=== PATIENT | female | born 1955 | race Caucasian/White ===

== ENCOUNTER 2018-09-28 06:16 | Observation (INO) ==
[2018-09-28] MEDS ORDERED: Isovue-370 500 ML BOTTLE IVP ONE (06:32)
[2018-09-28] MEDS ORDERED: 0.9 % Sodium Chloride 1,000 ML IVC ONE (06:33)
[2018-09-28 07:00] LABS: Basophils % 0.5 %; Eosinophils # 0.2 K/mcL (0.0-0.6); Eosinophils % 2.3 %; Hematocrit 34.6 % (35.3-44.9); Hemoglobin 11.8 g/dL (11.5-15.4); Immature Granulocytes % 0.5 % (0-4); Lymphocytes # 3.2 K/mcL (0.6-4.6); Lymphocytes % 37.7 %; Mean Corpuscular HGB Conc 34.1 g/dL (31.6-35.5); Mean Corpuscular Hemoglobin 29.7 pg (28.0-33.3); Mean Corpuscular Volume 87.2 fL (83.0-100.0); Mean Platelet Volume 8.3 fL (9.4-12.4); Monocytes # 0.8 K/mcL (0.0-1.3); Monocytes % 9.6 %; Neutrophils # 4.2 K/mcL (1.6-8.9); Platelet Count 233 K/mcL (140-400); Red Blood Count 3.97 M/mcL (3.82-4.97); Red Cell Distribution Width 12.8 % (11.5-14.5); Segmented Neutrophils % 49.4 %; White Blood Count 8.4 K/mcL (4.3-11.1)
--- NOTE | 2018-09-28 07:05 | Emergency Department Note ---
Disposition Clinical Impression: Lightheaded Back pain Qualifiers: Back pain location: low back pain Chronicity: acute Back pain laterality: midline Sciatica presence: without sciatica Qualified Code(s): M54.5 - Low back pain Disposition: Still a Patient Condition: Fair Time of Disposition: 07:26 General Adult HPI - General Chief complaint: ED Abdominal Pain Stated complaint: lightheaded Time Seen by Provider: 09/28/18 06:24 Source: patient Mode of arrival: ambulatory Limitations: no limitations Nursing Notes Reviewed: Yes Vital Signs Reviewed: Yes - History of Present Illness HPI Narrative: Patient is a 62 old female that presents emergency Department with low back pain and lightheadedness this began this morning approximately one hour prior to arrival. Patient states that she has never had anything like this before. Grace lyon also states that she has pain into both of her legs. Patient states that she has never been told that she has a history of an aneurysm. Patient states that she does not have any other significant medical problems. Patient states that she has been a previous smoker. Patient states that she has not noticed any mottling or discoloration to the legs. Patient states that she did not want to come she did not want to miss work. Friends state that she needed to come in to be evaluated. Pain Scale: 10 - Related Data Allergies Allergy/AdvReac Type Severity Reaction Status Date / Time diazepam [From Valium] AdvReac See Verified 09/28/18 06:33 Comments All systems ED: reviewed and negative except as stated. Cardiovascular: Denies: chest pain Respiratory: Denies: dyspnea Gastrointestinal: Reports: abdominal pain. Denies: nausea, vomiting Musculoskeletal: Reports: back pain, other (bilateral leg pain ) Neurological: Denies: numbness, paresthesias Past Medical History - Past Medical History Medical history: Reports: no medical history Psychiatric history: Reports: no psych history - Social History Smoking Status: Current every day smoker Alcohol use: Reports: none Drug use: Reports: none Physical Exam - General Limitations: no limitations General appearance: alert, in distress - Head Head exam: atraumatic, normocephalic - Eye Eye exam: Present: normal appearance, EOMI - Neck Neck exam: Present: normal inspection, full ROM, trachea midline - Respiratory Respiratory exam: Present: normal lung sounds bilaterally. Absent: respiratory distress, wheezes - Cardiovascular Cardiovascular exam: Present: regular rate, normal rhythm, normal heart sounds, +S1, +S2 - Abdominal Exam Abdominal exam: Present: soft, tenderness (Mid abdomen ), normal bowel sounds, pulsatile mass - Neurological Exam Neurological exam: Present: alert, oriented X3 - Psychiatric Psychiatric exam: Present: normal affect, normal mood - Skin Skin exam: Present: warm, dry, intact Course Vital Signs Temperature 97 F L 09/28/18 06:26 Pulse Rate 42 09/28/18 06:26 Respiratory Rate 20 09/28/18 06:26 Blood Pressure 108/58 09/28/18 06:26 O2 Sat by Pulse Oximetry 99 09/28/18 06:26 Temperature 97 F L 09/28/18 06:26 Pulse Rate 64 09/28/18 06:33 Respiratory Rate 26 09/28/18 06:33 Blood Pressure 112/53 09/28/18 06:33 O2 Sat by Pulse Oximetry 95 09/28/18 06:33 Oxygen Delivery Oxygen Delivery Room Air Medical Decision Making - MDM Narrative Medical decision making narrative: Due the patient presented to the emergency department with reports of low back pain, leg pain and feeling lightheaded and there is no immediate concern for possible ruptured aneurysm versus dissection. The patient had a pulsatile mass on physical exam. An IV was immediately placed and the patient was promptly brought to CT scan. Laboratory testing was also ordered. CT dissection study shows a 3.8 cm aortic aneurysm without any evidence of dissection or extravasation. Due to shift change the patient will be signed out to Dr. Ramsey and Dr. Mckeon. Please see their documentation for further medical decision making and final disposition of the patient. - Medical Records Medical records reviewed: Yes I reviewed the patient's medical records. - Lab Data Lab results reviewed: Yes I reviewed the patient's lab results. - Radiology Data Radiology results reviewed: Yes I reviewed the patient's radiology results. CT Dissection 09/28/18 06:32 IMPRESSION: 1. Bilobed infrarenal abdominal aortic aneurysm measures up to 3.8 cm. The recommended follow-up for an aneurysm of this size is every 2 years. 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 2. No dissection. 3. Emphysema. 4. Diverticulosis without scan evidence for diverticulitis. D/ / Alex Rendon MD / Alex Rendon MD Interpreting Provider: Alex Rendon MD - EKG Data EKG #1 EKG attestation: Yes I reviewed and interpreted this EKG. EKG results narrative: EKG shows a junctional rhythm at a rate of 44 bpm, QRS duration 81, QTC of 388. This is compared to previous EKG on 08/04/12.
[2018-09-28 07:09] LABS: INR 1.1; Prothrombin Time 12.2 Seconds (9.4-12.1)
[2018-09-28 07:18] LABS: BUN/Creatinine Ratio 12 (6-26); Blood Urea Nitrogen 11 mg/dL (8-23); Calcium 9.3 mg/dL (8.6-10.3); Carbon Dioxide 24 mEq/L (23-29); Chloride 94 mEq/L (98-107); Glucose 126 mg/dL (70-105); Osmolality,Calculated 267 (280-300); Potassium 3.5 mEq/L (3.5-5.1); Sodium 128 mEq/L (136-145); Troponin I < 0.03 ng/mL (< 0.04); eGFR For African Americans > 60 (> 60); eGFR For Non-African Americans 60 (> 60)
--- NOTE | 2018-09-28 07:47 | Emergency Department Note ---
Disposition Clinical Impression: Lightheaded Back pain Qualifiers: Back pain location: low back pain Chronicity: acute Back pain laterality: mi dline Sciatica presence: without sciatica Qualified Code(s): M54.5 - Low back pain Disposition: Still a Patient Condition: Fair Referrals: Jodi Webster MD [Primary Care Provider] - Forms: ED Satisfaction Letter, Work/School Release Time of Disposition: 07:43 General Adult HPI - General Chief complaint: ED Dizziness Stated complaint: lightheaded Time Seen by Provider: 09/28/18 06:24 Source: patient Mode of arrival: ambulatory Limitations: no limitations Nursing Notes Reviewed: Yes Vital Signs Reviewed: Yes - History of Present Illness Pain Scale: 5 - Related Data Home Medications Medication Instructions Recorded Confirmed No Known Home Drugs 09/28/18 09/28/18 Allergies Allergy/AdvReac Type Severity Reaction Status Date / Time diazepam [From Valium] AdvReac See Verified 09/28/18 06:33 Comments Cardiovascular: Denies: chest pain Respiratory: Denies: dyspnea Gastrointestinal: Reports: abdominal pain. Denies: nausea, vomiting Musculoskeletal: Reports: back pain, other (bilateral leg pain ) Neurological: Denies: numbness, paresthesias Past Medical History - Past Medical History Medical history: Reports: no medical history Psychiatric history: Reports: no psych history - Social History Smoking Status: Current every day smoker Alcohol use: Reports: none Drug use: Reports: none Physical Exam - General Limitations: no limitations General appearance: alert, in distress Course Vital Signs Temperature 97 F L 09/28/18 06:26 Pulse Rate 42 09/28/18 06:26 Respiratory Rate 20 09/28/18 06:26 Blood Pressure 108/58 09/28/18 06:26 O2 Sat by Pulse Oximetry 99 09/28/18 06:26 Temperature 97 F L 09/28/18 06:26 Pulse Rate 57 09/28/18 07:39 Respiratory Rate 16 09/28/18 07:39 Blood Pressure 116/84 09/28/18 07:39 O2 Sat by Pulse Oximetry 100 09/28/18 07:39 Oxygen Delivery Oxygen Delivery Room Air Medical Decision Making - Lab Data Lab results reviewed: Yes I reviewed the patient's lab results. Result diagrams: 09/28/18 06:40 09/28/18 06:40 Lab Results 09/28/18 09/28/18 09/28/18 Range/Units 06:40 06:40 06:40 WBC 8.4 (4.3-11.1) K/mcL RBC 3.97 (3.82-4.97) M/mcL Hgb 11.8 (11.5-15.4) g/dL Hct 34.6 L (35.3-44.9) % MCV 87.2 (83.0-100.0) fL MCH 29.7 (28.0-33.3) pg MCHC 34.1 (31.6-35.5) g/dL RDW 12.8 (11.5-14.5) % Plt Count 233 (140-400) K/mcL MPV 8.3 L (9.4-12.4) fL Immature Gran % 0.5 (0-4) % Seg Neutrophils % 49.4 % Lymphocytes % 37.7 % Monocytes % 9.6 % Eosinophils % 2.3 % Basophils % 0.5 % Neutrophils # 4.2 (1.6-8.9) K/mcL Lymphocytes # 3.2 (0.6-4.6) K/mcL Monocytes # 0.8 (0.0-1.3) K/mcL Eosinophils # 0.2 (0.0-0.6) K/mcL Basophils # 0.0 (0.0-0.2) K/mcL PT 12.2 H (9.4-12.1) Seconds INR 1.1 Sodium 128 L (136-145) mEq/L Potassium 3.5 (3.5-5.1) mEq/L Chloride 94 L (98-107) mEq/L Carbon Dioxide 24 (23-29) mEq/L BUN 11 (8-23) mg/dL Creatinine 0.94 (0.60-1.20) mg/dL Est GFR ( Amer) > 60 (> 60) Est GFR (Non-Af Amer) 60 (> 60) BUN/Creatinine Ratio 12 (6-26) Glucose 126 H (70-105) mg/dL Calculated Osmolality 267 L (280-300) Calcium 9.3 (8.6-10.3) mg/dL Troponin I < 0.03 (< 0.04) ng/mL Blood Type Antibody Screen 09/28/18 Range/Units 06:40 WBC (4.3-11.1) K/mcL RBC (3.82-4.97) M/mcL Hgb (11.5-15.4) g/dL Hct (35.3-44.9) % MCV (83.0-100.0) fL MCH (28.0-33.3) pg MCHC (31.6-35.5) g/dL RDW (11.5-14.5) % Plt Count (140-400) K/mcL MPV (9.4-12.4) fL Immature Gran % (0-4) % Seg Neutrophils % % Lymphocytes % % Monocytes % % Eosinophils % % Basophils % % Neutrophils # (1.6-8.9) K/mcL Lymphocytes # (0.6-4.6) K/mcL Monocytes # (0.0-1.3) K/mcL Eosinophils # (0.0-0.6) K/mcL Basophils # (0.0-0.2) K/mcL PT (9.4-12.1) Seconds INR Sodium (136-145) mEq/L Potassium (3.5-5.1) mEq/L Chloride (98-107) mEq/L Carbon Dioxide (23-29) mEq/L BUN (8-23) mg/dL Creatinine (0.60-1.20) mg/dL Est GFR ( Amer) (> 60) Est GFR (Non-Af Amer) (> 60) BUN/Creatinine Ratio (6-26) Glucose (70-105) mg/dL Calculated Osmolality (280-300) Calcium (8.6-10.3) mg/dL Troponin I (< 0.04) ng/mL Blood Type O POSITIVE Antibody Screen NEGATIVE - Radiology Data Radiology results reviewed: Yes I reviewed the patient's radiology results. CT Dissection 09/28/18 06:32 IMPRESSION: 1. Bilobed infrarenal abdominal aortic aneurysm measures up to 3.8 cm. The recommended follow-up for an aneurysm of this size is every 2 years. 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 2. No dissection. 3. Emphysema. 4. Diverticulosis without scan evidence for diverticulitis. D/ / Alex Rendon MD / Alex Rendon MD Interpreting Provider: Alex Rendon MD - EKG Data EKG #1 EKG attestation: Yes I reviewed and interpreted this EKG. EKG results narrative: EKG shows a junctional bradycardia with ventricular rate of 44. No significant ST segment elevation or depression. Critical Care Time Critical Care Time: Yes Total Critical Care Time: 45 Attestation: Critical care performed: Time is exclusive of separately billable procedures. Time includes: direct patient care, patient reassessment, coordination of patient care, interpretation of data (laboratory data, radiology data, and respiratory data), review of patient's medical records, medical consultation and documentation of patient care. Procedures included in critical care time: Procedures excluded from critical care time: Attestation Statement - Attestation Attestation: I, Enio Boogie MD, personally evaluated this patient and discussed their management with the resident physician. I reviewed the resident's note and agree with the documented findings, medical decision making, and plan of care. I reviewed the residents documentation and agree with the residents assessment and plan of care. I have personally had face to face time with the patient. I personally supervised and was present for the solorio/critical portions of the f ollowing procedures completed by the resident: EKG interpretation. 62-year-old female presents to the emergency department with a complaint of acute onset of feeling very lightheaded and weak and faint associated with lower back pain. This started approximately 1 hour prior to arrival while she was at work. No prior history of similar episodes. She denies any chest pain or shortness of breath. Some abdominal pain. No known history of aneurysm. No syncope. On examination patient is a well-developed well-nourished female in mild distress. She is alert and oriented 3. There is no cyanosis or diaphoresis. She does appear to be in moderate discomfort. Breath sounds are clear and equal bilaterally. Heart bradycardic and regular. Abdomen is soft with left mid and lower abdominal tenderness with a palpable pulsatile mass in the left mid abdomen. Pulses intact distally. EKG shows a junctional bradycardia with ventricular rate of 44. No significant ST segment elevation or depression. CT dissection study shows an aneurysm of the infrarenal aorta but no dissection. Labs reviewed. At shift change [facility], Dr. Ramsey and Dr. Mckeon.
[2018-09-28 08:27] LABS: Bilirubin,Urine Negative (Negative); Blood,Urine Negative (Negative); Clarity,Urine Clear (Clear); Color,Urine Yellow (Yellow); Glucose,Urine (UA) Normal (Normal); Ketones,Urine Negative (Negative); Leukocyte Esterase,Urine Negative (Negative); Nitrite,Urine Negative (Negative); PH,Urine 7.5 pH Units (5.0-8.0); Protein,Urine Negative (Neg-Trace); Specific Gravity,Urine 1.021 (1.010-1.025); Urobilinogen,Urine Normal (Normal)
--- NOTE | 2018-09-28 09:14 | Internal Med History&Physical ---
Date of Encounter: 09/28/18 Time of Encounter: 09:12 Internal Medicine - H&P: HPI History of present illness: Ms. Serrano is a 62 year old female former smoker otherwise no known PMH presented for onset of dizziness today at work. She is also complaining of mild abdominal pain and lower back pain. She denies chest pain, SOB, n/v, fevers/chills, headache, change in vision. There was concern for a pulsatile mass on exam and so a CT dissection study was done that was negative for dissection. It did show a 3.8 cm aortic aneurysm. Patient had episode of bradycardia but denied any chest pain or SOB, N/V. Sodium found to be 128, patient states she has had episodes of hyponatremia in the past. She was given 1 L normal saline. Patient currently in no acute distress. Past Med Surg Social Fam HX - Past Medical History Medical history: no medical history Psychiatric history: no psych history - Past Surgical History Additional surgical history: lobectomy - Social History Smoking Status: Current every day smoker Alcohol use: none Drug use: none Internal Medicine - H&P: Meds No Known Home Drugs 09/28/18 [History] Allergy/AdvReac Type Severity Reaction Status Date / Time diazepam [From Valium] AdvReac See Verified 09/28/18 06:33 Comments All Systems PM: A 10-system review of systems was performed and is negative for pertinent findings except as documented above in the HPI. - Constitutional Vitals: Temp Pulse Resp BP Pulse Ox 97 F L 67 18 139/63 97 09/28/18 06:26 09/28/18 08:21 09/28/18 08:21 09/28/18 08:21 09/28/18 08:21 General appearance: Present: A&O X 3, no acute distress Exam: . - Head Head exam: Present: atraumatic, normocephalic - Eye Eye exam: Present: PERRL, conjuntiva pink, sclera anicteric Pupils: Present: PERRL - Neck Neck exam general surgery: Present: supple, trachea midline. Absent: lymphadenopathy - Respiratory Respiratory exam: Present: CTAB. Absent: accessory muscle use, rales, rhonchi, wheezes - Cardiovascular Cardiovascular exam: Present: RRR, +S1, +S2. Absent: diastolic murmur, gallop, rubs, systolic murmur - GI/Abdominal GI/Abdominal exam: Present: normal bowel sounds, soft, no peritoneal signs. Absent: distended, pulsatile mass, tenderness Additional comments: No pulsatile mass appreciated on my exam with deep palpation. - Extremities Exam Extremities exam: Present: warm, radial pulses palpable and symmetrical. Absent: calf tenderness, cyanotic, pedal edema - Neurological Exam Neurological exam: Present: CN II-XII intact, oriented X3, no focal deficits. Absent: pronater drift, facial droop, speech deficit - Skin Skin exam: Present: dry, intact Internal Med - H&P Results - Labs CBC & Chem 7: 09/28/18 06:40 09/28/18 06:40 Labs: Short CBC 09/28/18 Range/Units 06:40 WBC 8.4 (4.3-11.1) K/mcL Hgb 11.8 (11.5-15.4) g/dL Hct 34.6 L (35.3-44.9) % Plt Count 233 (140-400) K/mcL Neutrophils # 4.2 (1.6-8.9) K/mcL BMP 09/28/18 06:40 Sodium 128 L Potassium 3.5 Chloride 94 L Carbon Dioxide 24 BUN 11 Creatinine 0.94 Glucose 126 H Calcium 9.3 Cardiac Enzymes 09/28/18 Range/Units 06:40 Troponin I < 0.03 (< 0.04) ng/mL Urine 09/28/18 Range/Units 08:00 Urine Color Yellow (Yellow) Urine Clarity Clear (Clear) Urine pH 7.5 (5.0-8.0) pH Units Ur Specific [place] 1.021 (1.010-1.025) Urine Protein Negative (Neg-Trace) mg/dL Urine Glucose (UA) Normal (Normal) mg/dL - Impressions ITS Impressions CT Dissection 09/28/18 06:32 IMPRESSION: 1. Bilobed infrarenal abdominal aortic aneurysm measures up to 3.8 cm. The recommended follow-up for an aneurysm of this size is every 2 years. 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 2. No dissection. 3. Emphysema. 4. Diverticulosis without scan evidence for diverticulitis. D/ / Alex Rendon MD / Alex Rendon MD Interpreting Provider: Alex Rendon MD - Assessment and Plan (1) Lightheaded Current Visit: Yes Status: Acute Assessment and plan: Possibly related to hyponatremia. Less likely bradycardia but also possible. Received 1 L normal saline in ED, currently doing well. Continue to replace sodium slowly as she says she does have episodes of low sodium before. Continue normal saline, Recheck in 4-6 hours. (2) Aneurysm of infrarenal abdominal aorta Current Visit: Yes Status: Acute Assessment and plan: Seen on CTA. tibial pulses on exam normal, and appears to have good perfusion and sensation. Vascular Surgery consulted and will see patient. (3) Hyponatremia Current Visit: Yes Status: Acute Assessment and plan: Plan as above (4) Back pain Current Visit: Yes Status: Acute Assessment and plan: Unsure etiology currently, pain happens off and on and recurred today. CT dissection study showed 3.8 cm aortic aneurysm with no dissection otherwise CT h ad no acute findings. Vascular Surgery consulted. Qualifiers: Back pain location: low back pain Chronicity: acute Back pain laterality: midline Sciatica presence: without sciatica Qualified Code(s): M54.5 - Low back pain (5) DVT prophylaxis Current Visit: Yes Status: Acute Assessment and plan: epcd (6) Bradycardia Current Visit: Yes Status: Acute Assessment and plan: Patient noted to have HR in 40s on admission, with normal blood pressure readings. At bedside, HR in is 70s and she is having no symptoms. No known history of cardiac issues. Does not take any medications. Continue to monitor. If bradycardia episode returns, will consider echocardiogram. - Time Spent With Patient Total time spent is greater than 50% in coordination of care (as documented) at patient's floor/unit and/or counseling patient:
--- NOTE | 2018-09-28 09:22 | Emergency Department Note ---
START Narrative - START START: Briefly, a 62-year-old female signed to me in sign out. Concern for 3.8 cm bilobed renal aneurysm. Patient also hyponatremic. Patient reports that last time she felt this way her sodium was low as well. She did come in with back pain and dizziness. Patient feeling more comfortable at the time of admission. I did speak with Dr. Jones on behalf of the hospitalist for an urgent consult as he was concerned about a possible symptomatic aneurysm. He agreed to see the patient on the floor.
[2018-09-28] MEDS ORDERED: Naloxone 0.4 MG/ML INJ IVP PRN (09:32)
[2018-09-28] MEDS ORDERED: Ondansetron 4 MG/2 ML VIAL IVP ONE (09:36)
[2018-09-28] MEDS ORDERED: Nitroglycerin 0.4 MG TAB.SUBL SL PRN (09:36)
--- NOTE | 2018-09-28 10:00 | Electrocardiograph Report ---
[address] [address] Test Date: 2018-09-28 Pat Name: Nisa Serrano Department: EXAM21 Room: [facility] Gender: F Soils Technician: : 1955 Requested By: Enio Boogie Order Number: [id number] Reading MD: Erika Lombardi Measurements Intervals [place] Rate: 44 P: ID: QRS: 30 QRSD: 81 T: 21 QT: 453 QTc: 388 Interpretive Statements Junctional rhythm Abnormal R-wave progression, early transition Minimal ST elevation, inferior leads Electronically Signed On 09-28-2018 9:58:05 EDT by Erika Lombardi
[2018-09-28] MEDS ORDERED: Perflutren Lipid Microsphere 1.3 ML in 0.9 % Sodium Chloride 8.7 ML IVP ONE (15:20)
[2018-09-28] MEDS: 0.9 % Sodium Chloride 1,000 ML IVC SCH (16:13)
--- NOTE | 2018-09-28 17:23 | Vascular/Endovasc Consult Note ---
Date of Encounter: 09/28/18 Time of Encounter: 17:20 Assessment and Plan (1) Aneurysm of infrarenal abdominal aorta Current Visit: Yes Status: Acute Acute finding of asymptomatic and small abdominal aortic aneurysm. I reviewed with the patient the natural history of abdominal aortic aneurysms. We discussed potential treatment options but at this time as her aneurysm is small and without problems I recommended a conservative course of action. I recommended that the patient undergo repeat ultrasound of the aneurysm in 2 years. All questions were answered. The patient does not require a follow-up appointment with the vascular surgery clinic. (2) Hyponatremia Current Visit: Yes Status: Acute Patient was found to have a serum sodium level of 128. She is undergoing treatment for that at this time. - History of Present Illness Consult date: 09/28/18 Consult reason: Abdominal aortic aneurysm Chief complaint: Dizziness History of present illness: Ms. 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 During her evaluation the possibility of an aortic dissection was raised and so therefore the patient underwent a CT angiogram of the chest and abdomen and pelvis. This revealed a previously unsuspected abdominal aortic aneurysm. This measured approximately 3.8 cm. I have personally reviewed the images. There is no finding of retroperitoneal hematoma or edema or signs of leakage from the aneurysm. There were no findings of dissection. There was no significant vascular pathology identified. The patient denies any abdominal or flank or back pain at this time. At the time of my interview with the patient in the clinical decision unit the patient was feeling well. She states she is feeling much improved from how she had felt early this morning. She is no longer dizzy. She was undergoing an echocardiogram during my visit. The patient does reveal that her mother has an abdominal aortic aneurysm and this is being observed as an outpatient. She is unaware of any other family members having an aneurysm. Past Med Surg Social Fam HX - Past Medical History Medical history: no medical history Psychiatric history: no psych history - Past Surgical History Additional surgical history: lobectomy - Social History Smoking Status: Former smoker Alcohol use: none Drug use: none - Family History Mother Age: 89 Living Status: Still Living Hx Family Cardiac Disorders: Yes (HTN, AAA) Hx Family Respiratory Disorders: No Hx Family Cancer: No Hx Family GI Disorders: No Hx Family Genitourinary Disorders: No Hx Family Endocrine Disorder: Yes (DM) Hx Family Musculoskeletal Disorders: No Hx Family Neuromuscular Disorders: No Hx Family Neurologic Disorders: No Hx Family HEENT Disorders: No Hx Family Autoimmune Disorders: No Hx Family Reproductive Disorders: No Hx Family Psychosocial Disorders: No Medications and Allergies No Known Home Drugs 09/28/18 [History] Allergy/AdvReac Type Severity Reaction Status Date / Time diazepam [From Valium] AdvReac See Verified 09/28/18 14:17 Comments All Systems Review: The remainder of the systems were reviewed and are negative Exam General: Present: Conversant, No Apparent Distress, Well developed, Well nourished HEENT: Present: Atraumatic, Normocephaly, Trachea midline Neck: Absent: JVD, Left Carotid bruit, Right Carotid bruit, Midline deformity, Tracheal deviation Cardiac: Present: Reg Rate and Rhythm, Normal S1 and S2, No Murmur Lungs: Present: Normal Breath Sounds Neuro: Present: Alert and responsive, No focal deficits noted, Cranial nerves grossly intact Abdomen: Present: Soft, Non-tender, Other (No abdominal bruits. No palpable pulsatile masses. No periumbilical or flank ecchymosis). Absent: Masses Vascular: Present: Normal capillary refill, Pulse, normal, Color/Temperature (Lower extremities demonstrate normal warmth and color. No signs of distal embolization.). Absent: Bruit, Cyanosis, Edema, Amputation(s) Skin: Present: No rashes noted on visualized skin. Absent: Wound/ulcer(s) Consult Discharge Plan - Plan Referrals: Jodi Webster MD [Primary Care Provider] -
[2018-09-28 18:22] LABS: BUN/Creatinine Ratio 11 (6-26); Blood Urea Nitrogen 9 mg/dL (8-23); Calcium 9.3 mg/dL (8.6-10.3); Carbon Dioxide 25 mEq/L (23-29); Chloride 96 mEq/L (98-107); Glucose 86 mg/dL (70-105); Osmolality,Calculated 262 (280-300); Potassium 4.2 mEq/L (3.5-5.1); Sodium 127 mEq/L (136-145); eGFR For African Americans > 60 (> 60); eGFR For Non-African Americans > 60 (> 60)
[2018-09-29] MEDS: 0.9 % Sodium Chloride 1,000 ML IVC SCH (04:08)
[2018-09-29 06:08] LABS: Basophils % 0.5 %; Eosinophils # 0.2 K/mcL (0.0-0.6); Eosinophils % 2.6 %; Hematocrit 35.4 % (35.3-44.9); Hemoglobin 11.9 g/dL (11.5-15.4); Immature Granulocytes % 0.5 % (0-4); Lymphocytes # 2.1 K/mcL (0.6-4.6); Lymphocytes % 33.7 %; Mean Corpuscular HGB Conc 33.6 g/dL (31.6-35.5); Mean Corpuscular Hemoglobin 29.2 pg (28.0-33.3); Mean Platelet Volume 8.4 fL (9.4-12.4); Monocytes # 0.6 K/mcL (0.0-1.3); Monocytes % 8.9 %; Neutrophils # 3.3 K/mcL (1.6-8.9); Platelet Count 221 K/mcL (140-400); Red Blood Count 4.07 M/mcL (3.82-4.97); Red Cell Distribution Width 12.7 % (11.5-14.5); Segmented Neutrophils % 53.8 %; White Blood Count 6.2 K/mcL (4.3-11.1)
[2018-09-29 06:38] LABS: BUN/Creatinine Ratio 13 (6-26); Blood Urea Nitrogen 10 mg/dL (8-23); Calcium 8.8 mg/dL (8.6-10.3); Carbon Dioxide 25 mEq/L (23-29); Chloride 95 mEq/L (98-107); Glucose 99 mg/dL (70-105); Osmolality,Calculated 265 (280-300); Potassium 4.9 mEq/L (3.5-5.1); Sodium 128 mEq/L (136-145); eGFR For African Americans > 60 (> 60); eGFR For Non-African Americans > 60 (> 60)
[2018-09-29 07:11] VITALS: BP 129/62
[2018-09-29] MEDS ORDERED: 0.9 % Sodium Chloride 1,000 ML IVC SCH (11:00)
--- NOTE | 2018-09-29 11:11 | Discharge Summary ---
- NOTES TO OUTPATIENT PROVIDER Notes to Outpatient Provider: Has chronic hyponatremia. Was encouraged to take more PO salt. Please repeat BMP at your convenience in the next 2 weeks. Need abdominal US in 2 years for AAA Orders not resulted at time of discharge: Pending orders 09/29/18 11:01 TSH [Thyroid Stimulating Hormone] Stat 09/29/18 11:02 Cortisol,Random Stat Date of Encounter: 09/29/18 Time of Encounter: 11:09 - Discharge Diagnosis (1) Back pain Priority: Secondary Status: Acute Qualifiers: Back pain location: low back pain Chronicity: acute Back pain laterality: midline Sciatica presence: without sciatica Qualified Code(s): M54.5 - Low back pain (2) Lightheaded Priority: Primary Status: Acute (3) Aneurysm of infrarenal abdominal aorta Priority: Primary Status: Acute (4) Hyponatremia Priority: Primary Status: Acute (5) Bradycardia Priority: Primary Status: Acute Hospital course: Ms. Serrano is a 62 year old female former smoker otherwise no known PMH presented for onset of dizziness today at work. There was concern for a pulsatile mass on exam and so a CT dissection study was done that was negative for dissection. It did show a 3.8 cm aortic aneurysm. Patient had episode of bradycardia but denied any chest pain or SOB, N/V. EKG with no acute findings. Trops neg. Sodium found to be 128, patient states she has had episodes of hyponatremia in the past. She does not add salt to her diet. She was given 2L NS in the hospital and her sodium was not changing much. She was feeling back to her baseline. I walked her myself prior to discharge and she did really well. I did check TSH and cortisol levels as well which are pending. She was seen by vascular who recommended an abd US in 2 years for AAA. Echo was unremarkable other than mild AR, mild MR, and mild TR. Was discharged on 09/29/18 - Time Spent with Patient Total time spent providing and/or coordinating discharge services: Time spent: Greater than 30 minutes - Discharge Medications Prescriptions: No Action No Known Home Drugs 1 each .ROUTE AD each Home Medications: No Known Home Drugs 09/28/18 [History] Allergies/Adverse Reactions: Allergy/AdvReac Type Severity Reaction Status Date / Time diazepam [From Valium] AdvReac See Verified 09/28/18 14:17 Comments Date of admission: 09/28/18 09:48 Primary care physician: Jodi Webster MD Consults: 09/28/18 07:30 Consult to Vascular Surgery [CONS] Stat Consulting Provider: V[facility] [place] Reason for Consult: infrarenal aneurysm, abdominal pain Time Notified: 07:31 Call Completed: No - Constitutional Vitals: Temp Pulse Resp BP Pulse Ox 97.6 F 51 16 129/62 97 09/29/18 07:09 09/29/18 07:09 09/29/18 07:09 09/29/18 07:09 09/29/18 07:09 General appearance: Present: A&O X 3, no acute distress Exam: GEN: NAD CVS: . bradycardic. S1, S2, No m/r/g RESP: CTAB ABD: Soft, NT, ND, +BS EXT: No edema. 2+ DP. No rashes NEURO: Nonfocal - Patient Status Disposition: Home, Self-Care Condition: Fair Overall status at discharge: patient is progressing back to baseline - Discharge Instructions Follow Up With: Jodi Webster MD [Primary Care Provider] - 10/06/18 8:45 am ([facility]. ) - Diet and Activity Activity: increase activity as tolerated Diet: regular diet
== END 2018-09-29 13:31 | disposition home or self-care (01) ==
LOC: CDU 06:16 → EMEROOARM 06:16 → CDU 10:56 → 2NENU 19:31
PROVIDERS: ADMIT Student in an Organized Health Care Education/Training Program; ATTEND Student in an Organized Health Care Education/Training Program

== ENCOUNTER 2018-10-06 12:57 | Observation (INO) ==
--- NOTE | 2018-10-06 14:28 | Emergency Department Note ---
Disposition Clinical Impression: Hyponatremia Disposition: Admitted As Inpatient Condition: Fair Referrals: NONE,PCP [Primary Care Provider] - Forms: ED Satisfaction Letter Time of Disposition: 15:11 General Adult HPI - General Chief complaint: ED Recheck/Abnormal Lab/Rx Stated complaint: Low sodium Time Seen by Provider: 10/06/18 13:15 Source: patient Limitations: no limitations Nursing Notes Reviewed: Yes Vital Signs Reviewed: Yes - History of Present Illness HPI Narrative: Presents because the sodium level was checked at the primary care office this morning was 122 so the patient was sent here for admission. The patient is asymptomatic. She does not take any blood pressure medicines. No lightheadedness or fatigue. No pain in the head, neck, chest, abdomen or back. She has had a low sodium in the past 127 as well as that I found in a did review the previous record. Social history: Stopped smoking 5 years ago. No weight loss Pain Scale: 0 - Related Data Home Medications Medication Instructions Recorded Confirmed No Known Home Drugs 09/28/18 09/28/18 Allergies Allergy/AdvReac Type Severity Reaction Status Date / Time diazepam [From Valium] AdvReac See Verified 09/28/18 14:17 Comments Review of Systems: Constitutional: No fever Vision: No blurred vision ENT: No rhinorrhea Respiratory: No cough Allergic: No allergies : No blood in urine GI: No blood in stool Hematologic: No bruising Dermatologic: No skin rash Musculoskeletal: No pain in the extremities Neuro: No numbness of the extremities Past Medical History - Past Medical History Medical history: Reports: no medical history Psychiatric history: Reports: no psych history - Social History Smoking Status: Former smoker Alcohol use: Reports: none Drug use: Reports: none Physical Exam CONSTITUTIONAL: Alert and oriented X3, well-nourished, well appearing, in no apparent distress HEAD: Normocephalic; atraumatic. EYES: PERRL, no scleral icterus. NOSE: The nose is normal in appearance without rhinorrhea RESP: Normal chest excursion with respiration; breath sounds clear and equal bilaterally; no wheezes, rhonchi, or rales CARD: Regular rhythm, without murmurs, rub or gallop ABD: Non-distended; non-tender, soft,without rigidity, rebound or guarding SKIN: Normal for age and race; warm and dry; no apparent lesions - General Limitations: no limitations General appearance: alert, in no apparent distress Course Vital Signs Temperature 97.4 F L 10/06/18 13:04 Pulse Rate 57 10/06/18 13:04 Respiratory Rate 18 10/06/18 13:04 Blood Pressure 143/82 10/06/18 13:04 O2 Sat by Pulse Oximetry 98 10/06/18 13:04 Temperature 97.4 F L 10/06/18 13:04 Pulse Rate 57 10/06/18 13:04 Respiratory Rate 18 10/06/18 13:04 Blood Pressure 143/82 10/06/18 13:04 O2 Sat by Pulse Oximetry 98 10/06/18 13:04 Oxygen Delivery Oxygen Delivery Room Air Medical Decision Making - MDM Narrative Medical decision making narrative: Sodium level will be rechecked the patient will likely be admitted 1428 Patient is reassessed and told she will be admitted. Hospitalist is paged. I did add on urine sodium as well as serum and urine osmolality and the patient wi ll be further assessed for SIADH and this manner and these results can be interpreted by the hospitalist physician and will not be interpreted in the emergency department but are done to facilitate timeliness with the patient's evaluation. She is asymptomatic at this time. 1511 - Medical Records Medical records reviewed: Yes I reviewed the patient's medical records. - Lab Data Lab results reviewed: Yes I reviewed the patient's lab results. Result diagrams: 10/06/18 14:08 10/06/18 14:08 Lab Results 10/06/18 10/06/18 Range/Units 14:08 14:08 WBC 7.0 (4.3-11.1) K/mcL RBC 4.20 (3.82-4.97) M/mcL Hgb 12.5 (11.5-15.4) g/dL Hct 36.3 (35.3-44.9) % MCV 86.4 (83.0-100.0) fL MCH 29.8 (28.0-33.3) pg MCHC 34.4 (31.6-35.5) g/dL RDW 12.7 (11.5-14.5) % Plt Count 257 (140-400) K/mcL MPV 8.2 L (9.4-12.4) fL Sodium 122 L (136-145) mEq/L Potassium 4.2 (3.5-5.1) mEq/L Chloride 89 L (98-107) mEq/L Carbon Dioxide 27 (23-29) mEq/L BUN 10 (8-23) mg/dL Creatinine 0.73 (0.60-1.20) mg/dL Est GFR ( Amer) > 60 (> 60) Est GFR (Non-Af Amer) > 60 (> 60) BUN/Creatinine Ratio 14 (6-26) Glucose 112 H (70-105) mg/dL Calculated Osmolality 254 L (280-300) Calcium 9.3 (8.6-10.3) mg/dL
[2018-10-06 14:43] LABS: Hematocrit 36.3 % (35.3-44.9); Hemoglobin 12.5 g/dL (11.5-15.4); Mean Corpuscular HGB Conc 34.4 g/dL (31.6-35.5); Mean Corpuscular Hemoglobin 29.8 pg (28.0-33.3); Mean Corpuscular Volume 86.4 fL (83.0-100.0); Mean Platelet Volume 8.2 fL (9.4-12.4); Platelet Count 257 K/mcL (140-400); Red Cell Distribution Width 12.7 % (11.5-14.5)
[2018-10-06 14:52] LABS: BUN/Creatinine Ratio 14 (6-26); Blood Urea Nitrogen 10 mg/dL (8-23); Calcium 9.3 mg/dL (8.6-10.3); Carbon Dioxide 27 mEq/L (23-29); Chloride 89 mEq/L (98-107); Glucose 112 mg/dL (70-105); Osmolality,Calculated 254 (280-300); Potassium 4.2 mEq/L (3.5-5.1); Sodium 122 mEq/L (136-145); eGFR For African Americans > 60 (> 60); eGFR For Non-African Americans > 60 (> 60)
[2018-10-06] MEDS ORDERED: Naloxone 0.4 MG/ML INJ IVP PRN (15:54)
--- NOTE | 2018-10-06 16:06 | Internal Med History&Physical ---
Date of Encounter: 10/06/18 Time of Encounter: 15:57 Internal Medicine - H&P: HPI Chief complaint: Low sodium levels Admitted From: Emergency Dept History of present illness: Ms. Serrano is a 62 year old female patient with a history of recently diagnosed hyponatremia who was in the hospital here Last week for an episode of dizziness at work was sent to the ER for hyponatremia. Her labs showed a sodium level of 122. At the time of her discharge last week, her sodium level was 128. Patient denies any diarrhea. No nausea or vomiting. She does drink about 4-6, 16Oz glasses of water every day especially when it is hot outside. She denies any dizziness or lightheadedness today. No changes to urine output. No recent changes to medications. Patient does not take any diuretics. She denies any chronic medical conditions. During her last hospitalization, she just received IV fluids with no significant changes to her sodium levels. Past Med Surg Social Fam HX - Past Medical History Attestation: Yes The following information was validated with the patient. Source: patient Medical history: no medical history Additional medical history: Hyponatremia diagnosed last week Psychiatric history: no psych history - Past Surgical History Additional surgical history: lobectomy - Social History Smoking Status: Former smoker Alcohol use: none Drug use: none - Family History Mother Living Status: Still Living Hx Family Cardiac Disorders: Yes (HTN, AAA) Hx Family Respiratory Disorders: No Hx Family Cancer: No Hx Family GI Disorders: No Hx Family Endocrine Disorder: Yes (DM) Hx Family Neuromuscular Disorders: No Hx Family Neurologic Disorders: No Hx Family HEENT Disorders: No Hx Family Autoimmune Disorders: No Internal Medicine - H&P: Meds No Known Home Drugs 09/28/18 [History] Allergy/AdvReac Type Severity Reaction Status Date / Time diazepam [From Valium] AdvReac See Verified 09/28/18 14:17 Comments All Systems PM: A 10-system review of systems was performed and is negative for pertinent findings except as documented above in the HPI. - Constitutional Constitutional: no chills, no fever(s), no night sweats - EENT Eyes: no change in vision, no discharge, no pain, no photophobia Ears: no ear discharge, no ear pain, no tinnitus Nose, mouth and throat: no dysphagia, no nasal discharge, no neck pain, no sore throat - Cardiovascular Cardiovascular ROS IM: no chest pain, no diaphoresis, no dyspnea, no lightheadedness, no palpitations, no syncope - Respiratory Respiratory: no cough, no dyspnea, no wheezing, no excessive phlegm production - Gastrointestinal Gastrointestinal: no abdominal pain, no diarrhea, no hematemesis, no hematochezia, no melena, no nausea, no vomiting - Genitourinary Genitourinary: no change in urinary stream, no dysuria, no flank pain, no hematuria - Musculoskeletal Musculoskeletal ROS IM: no numbness, no tingling - Integumentary Integumentary IM: no rash, no unusual bruising - Neurological Neurological ROS: no confusion, no convulsions, no focal weakness, no numbness, no tingling, no tremor(s) - Hematologic/Lymphatic Hematologic/Lymphatic: no easy bruising - Constitutional Vitals: Temp Pulse Resp BP Pulse Ox 97.4 F L 57 18 143/82 98 10/06/18 13:04 10/06/18 13:04 10/06/18 13:04 10/06/18 13:04 10/06/18 13:04 General appearance: Present: cooperative, A&O X 3, pleasant, answers questions appropriately Exam: General: Patient is alert, no acute distress, oriented x 3 Head: atraumatic, normocephalic, ENT: Mucous membranes moist Eye: normal appearance, PERRL, no scleral icterus, no conjunctival injection Neck: normal inspection, trachea midline, full ROM, no carotid bruits Chest: normal inspection, symmetric chest rise Respiratory: Good respiratory effort. Normal breath sounds. No wheezing or crackles. Cardiovascular: Regular rate and rhythm. s1 and s2 normal No clicks, rubs, gallops, or murmurs. No pedal edema Abdomen: Abdomen is soft, nontender. Bowel sounds are present Musculoskeletal: Spontaneously moving all extremities Skin: warm, dry, intact. Neuro: Alert oriented x 3 normal cranial nerves, no focal deficits Psych: Patient's affect is normal Internal Med - H&P Results - Labs CBC & Chem 7: 10/06/18 14:08 10/06/18 14:08 Labs: Short CBC 10/06/18 Range/Units 14:08 WBC 7.0 (4.3-11.1) K/mcL Hgb 12.5 (11.5-15.4) g/dL Hct 36.3 (35.3-44.9) % Plt Count 257 (140-400) K/mcL BMP 10/06/18 14:08 Sodium 122 L Potassium 4.2 Chloride 89 L Carbon Dioxide 27 BUN 10 Creatinine 0.73 Glucose 112 H Calcium 9.3 - Assessment and Plan (1) Hyponatremia Current Visit: Yes Status: Acute Assessment and plan: Patient with hyponatremia. Etiology uncertain. Patient does have high urine sodium and normal urine osmolality. Calculated serum osmolality is low. Patient does not appear to be hypovolemic. No recent episodes of diarrhea or fluid losses. Could be due to SIADH. Patient does not take any medications. CT of the chest done last week did not show any abnormal lung lesions. Patient does have emphysema. Will place patient on fluid restriction. Consult nephrology. Patient's thyroid levels and cortisol levels were normal when last checked during her recent admission. Will monitor sodium levels every 4 hours overnight. Moderate risk for complications. - Time Spent With Patient Total time spent is greater than 50% in coordination of care (as documented) at patient's floor/unit and/or counseling patient:
[2018-10-06] MEDS ORDERED: Acetaminophen 325 MG TABLET PO PRN (16:14)
[2018-10-07 00:34] LABS: Basophils % 0.3 %; Eosinophils # 0.2 K/mcL (0.0-0.6); Eosinophils % 2.3 %; Hematocrit 35.3 % (35.3-44.9); Hemoglobin 12.5 g/dL (11.5-15.4); Immature Granulocytes % 0.3 % (0-4); Lymphocytes # 2.5 K/mcL (0.6-4.6); Lymphocytes % 34.6 %; Mean Corpuscular HGB Conc 35.4 g/dL (31.6-35.5); Mean Corpuscular Hemoglobin 29.8 pg (28.0-33.3); Mean Corpuscular Volume 84.2 fL (83.0-100.0); Mean Platelet Volume 8.2 fL (9.4-12.4); Monocytes # 0.8 K/mcL (0.0-1.3); Monocytes % 10.8 %; Neutrophils # 3.7 K/mcL (1.6-8.9); Platelet Count 253 K/mcL (140-400); Red Blood Count 4.19 M/mcL (3.82-4.97); Red Cell Distribution Width 12.6 % (11.5-14.5); Segmented Neutrophils % 51.7 %; White Blood Count 7.1 K/mcL (4.3-11.1)
[2018-10-07 00:55] LABS: BUN/Creatinine Ratio 21 (6-26); Blood Urea Nitrogen 14 mg/dL (8-23); Calcium 8.8 mg/dL (8.6-10.3); Carbon Dioxide 23 mEq/L (23-29); Chloride 91 mEq/L (98-107); Glucose 86 mg/dL (70-105); Osmolality,Calculated 248 (280-300); Potassium 4.4 mEq/L (3.5-5.1); Sodium 119 mEq/L (136-145); eGFR For African Americans > 60 (> 60); eGFR For Non-African Americans > 60 (> 60)
[2018-10-07 02:27] LABS: Alanine Aminotransferase 11 Units/L (7-52); Albumin 3.8 g/dL (3.5-5.7); Albumin/Globulin Ratio 1.4 (1.1-2.2); Alkaline Phosphatase 79 Units/L (34-104); Aspartate Amino Transferase 14 Units/L (13-39); Bilirubin,Direct 0.1 mg/dL (0.0-0.2); Bilirubin,Indirect 0.2 mg/dL (0.0-1.2); Bilirubin,Total 0.3 mg/dL (0.3-1.0); Globulin 2.7 g/dL (2.4-3.5); Total Protein 6.5 g/dL (6.4-8.9)
[2018-10-07] MEDS ORDERED: Tolvaptan 15 MG TABLET PO ONE (03:05)
--- NOTE | 2018-10-07 03:31 | Event Note ---
Date of Encounter: 10/07/18 Time of Encounter: 01:00 Notified by nurse of decrease in sodium. Patient still asymptomatic. Called technical solution architect nephrology Dr Mcgill who requested patient be started on Tolvaptan as long as no liver dysfunction and continue sodium checks q4 hours. Will order liver panel to confirm no liver dysfunction then order Tolvaptan and continue to monitor sodium levels.
--- NOTE | 2018-10-07 12:22 | Internal Med Progress Note ---
Hospitalist Progress Note - Encounter Date of Encounter: 10/07/18 Time of Encounter: 09:00 - Subjective Interval History: Ms. Serrano is a 62 year old female patient with a history of recently diagnosed hyponatremia who was in the hospital here Last week for an episode of dizziness at work, now she was sent to the ER from PCP office for hyponatremia. Her labs showed a sodium level of 122. At the time of her discharge last week, her sodium level was 128. Pt stated she does drink about 4-6, 16Oz glasses of water every day especially when it is hot outside. Pt was admitted in the hospital and placed her on front desk monitor. Her Na dropped down to 119, she was given Tolvaptan last night, now her Na improving slowly. She denied any new symptoms. - Exam Vitals: Temp Pulse Resp BP Pulse Ox 97.6 F 67 16 107/73 98 10/07/18 11:24 10/07/18 11:24 10/07/18 11:24 10/07/18 11:24 10/07/18 11:24 Exam: Gen: Alert, awake, Oriented to time,place and person Chest: Diminished breath sounds B/L, No wheezing, No crackles, No rales Heart: S1S2+ RRR No murmurs Abd: Soft, NT, BS +, No organomegaly Ext: No edema, pulses are palpable, No calf tenderness Neuro : No acute focal neuro deficits noticed Skin: No rash. - Assessment and Plan (1) Hyponatremia Current Visit: Yes Status: Acute Assessment and Plan: Unclear etiology acute on chronic hyponatremia Pt was given Tolvaptan Her current Na was 130 so will start her on 1/2NS @ 100 ml/hr cont close monitoring appreciate Nephrology recommendations our goal of correction 0.5meq/hr and not more than 8-10 meq/day - Time Spent with Patient Total time spent is greater than 50% in coordination of care (as documented) at patient's floor/unit and/or counseling patient: Internal Medicine: Result - Labs CBC & Chem 7: 10/07/18 00:07 10/07/18 10:41 Labs: Short CBC 10/06/18 10/07/18 Range/Units 14:08 00:07 WBC 7.0 7.1 (4.3-11.1) K/mcL Hgb 12.5 12.5 (11.5-15.4) g/dL Hct 36.3 35.3 (35.3-44.9) % Plt Count 257 253 (140-400) K/mcL Neutrophils # 3.7 (1.6-8.9) K/mcL BMP 10/06/18 10/06/18 10/07/18 14:08 19:39 00:07 Sodium 122 L 122 L 119 L* Potassium 4.2 4.4 Chloride 89 L 91 L Carbon Dioxide 27 23 BUN 10 14 Creatinine 0.73 0.68 Glucose 112 H 86 Calcium 9.3 8.8 10/07/18 10/07/18 10/07/18 05:01 06:55 10:41 Sodium 122 L 127 L 130 L Potassium Chloride Carbon Dioxide BUN Creatinine Glucose Calcium Liver Function 10/07/18 Range/Units 00:07 Total Bilirubin 0.3 (0.3-1.0) mg/dL Direct Bilirubin 0.1 (0.0-0.2) mg/dL AST 14 (13-39) Units/L ALT 11 (7-52) Units/L Alkaline Phosphatase 79 (34-104) Units/L Albumin 3.8 (3.5-5.7) g/dL Consult Discharge Plan - Plan Referrals: NONE,PCP [Primary Care Provider] -
--- NOTE | 2018-10-07 16:22 | Nephrology Consult Note ---
Date of Encounter: 10/07/18 Time of Encounter: 14:00 Assessment and Plan (1) SIADH (syndrome of inappropriate ADH production) Current Visit: Yes Status: Acute Likely SIADH Sodium corrected after use of tolvaptan Currently asymptomatic [place] dehydration chances low 1/2 NS 100mls per hour, close monitoring If sodium drops moer than 4-5 then stop fluids Chest CT on last admission showed emphasema but no masses No need for further tolvaptan Fluids restriction after this has corrected Q4 Na checks Monitor closely (2) Hyponatremia Current Visit: Yes Status: Acute Previous admission with Na 128, on admission this time 122 dropped to 119 Corrected to 132 with tolvaptan Now 1/2 NS to prevent overcorrection Please see above History of Present Illness - Reason for Consult Consult date: 10/06/18 hyponatremia - Chief Complaint hyponatremia - History of Present Illness Ms. Serrano is a 62-year-old female who presented to the ED after lab reports that her sodium was low. She had been seen approximately 2 weeks ago for hyponatremia which is lightheaded and dizzy. Her sodium on presentation he was 122 on repeat was 119. Fluid present started. Her sodium level is corrected to 132. Patient was seen and examined at bedside today. She states that she was not feeling bad at all when she got the call to go to the ED. She states she had been lightheaded and dizzy performed at she is not now. She has been drinking 4-616 ounce glasses of water every day because of hot outside. Patient denies any family history of kidney disease She states that she does not have any chronic medical conditions and has not taken any medications Patient was given Tolvaptan last night before her sodium levels were able to increase Today her vital signs are stable with blood pressure of 107/73, afebrile Urine output yesterday 600 input 360, urine output today 1450 input 1960 Oxidation with blood cell count 7.1, hemoglobin 12.5, hematocrit 35.3, platelet count 253, sodium 132, potassium 4.4, chloride 91, even 14, creatinine 0.68, GFR greater than 60 Past Med Surg Social Fam HX - Past Medical History Medical history: no medical history Additional medical history: Hyponatremia diagnosed last week Psychiatric history: no psych history - Past Surgical History Additional surgical history: lobectomy - Social History Smoking Status: Former smoker Alcohol use: none Drug use: none - Family History Mother Living Status: Still Living Hx Family Cardiac Disorders: Yes (HTN, AAA) Hx Family Respiratory Disorders: No Hx Family Cancer: No Hx Family GI Disorders: No Hx Family Endocrine Disorder: Yes (DM) Hx Family Neuromuscular Disorders: No Hx Family Neurologic Disorders: No Hx Family HEENT Disorders: No Hx Family Autoimmune Disorders: No Medications and Allergies No Known Home Drugs 09/28/18 [History] Allergy/AdvReac Type Severity Reaction Status Date / Time diazepam [From Valium] AdvReac See Verified 09/28/18 14:17 Comments Review of Systems Constitutional: no chills, no fever(s) Nose, mouth and throat: no dizziness Cardiovascular: no chest pain, no edema Respiratory: no cough, no dyspnea Gastrointestinal: no bloating, no loose stools, no nausea, no vomiting Genitourinary Female: no urinary frequency, no urinary hesitancy, no urinary incontinence, no urinary urgency Exam - Vital Signs Vital signs: Initial Vital Signs Temp Pulse Resp BP Pulse Ox 97.4 F L 57 18 143/82 98 10/06/18 13:04 10/06/18 13:04 10/06/18 13:04 10/06/18 13:04 10/06/18 13:04 Vital Signs - Last 8 Hours Temp Pulse Resp BP Pulse Ox 10/07/18 15:42 98.0 F 71 16 100/52 94 10/07/18 11:24 97.6 F 67 16 107/73 98 Intake and Output 10/07/18 10/07/18 10/07/18 07:59 15:59 23:59 Intake Total 480 / 1960 480 / 1960 1000 / 1960 Output Total 1450 / 1450 Balance -970 / 510 480 / 510 1000 / 510 Intake: IV Fluids 1000 / 1000 0.45% Sodium Chloride 1,000 ML 1000 / 1000 @ 500 mls/hr IVC .Q2H ENOC Rx#: [id number] Oral 480 / 960 480 / 960 Output: Urine 1450 / 1450 Other: Meal snacks Lunch Percent of Meal Consumed 90% Weight 77.2 kg Patient Weight 10/07/18 23:59 Weight 77.2 kg - General Appearance General appearance: well-developed, well-nourished Neck: no JVD, supple Respiratory: clear Cardiology: no murmurs, no rub, no gallops, no edema Gastrointestinal: normoactive bowel sounds, no tenderness, no guarding Integumentary: no rash, warm and dry Results - Lab Results 10/07/18 00:07 10/07/18 14:40 Consult Discharge Plan - Plan Referrals: NONE,PCP [Primary Care Provider] -
[2018-10-08 02:35] LABS: BUN/Creatinine Ratio 21 (6-26); Blood Urea Nitrogen 20 mg/dL (8-23); Calcium 9.5 mg/dL (8.6-10.3); Carbon Dioxide 25 mEq/L (23-29); Chloride 102 mEq/L (98-107); Glucose 102 mg/dL (70-105); Magnesium 2.1 mg/dL (1.6-2.6); Osmolality,Calculated 277 (280-300); Potassium 4.9 mEq/L (3.5-5.1); Sodium 132 mEq/L (136-145); eGFR For African Americans > 60 (> 60); eGFR For Non-African Americans 60 (> 60)
--- NOTE | 2018-10-08 08:56 | Internal Med Progress Note ---
Hospitalist Progress Note - Encounter Date of Encounter: 10/08/18 Time of Encounter: 08:54 - Subjective Interval History: Ms. Serrano is a 62 year old female patient with a history of recently diagnosed hyponatremia who was in the hospital here Last week for an episode of dizziness at work, now she was sent to the ER from PCP office for hyponatremia. Her labs showed a sodium level of 122. At the time of her discharge last week, her sodium level was 128. Pt stated she does drink about 4-6, 16Oz glasses of water every day especially when it is hot outside. Pt was admitted in the hospital and placed her on repairer controller tester. Na improving slowly. She denied any new symptoms. - Exam Vitals: Temp Pulse Resp BP Pulse Ox 97.8 F 63 15 118/78 100 10/08/18 06:56 10/08/18 06:56 10/08/18 06:56 10/08/18 06:56 10/08/18 06:56 Exam: Gen: Alert, awake, Oriented to time,place and person Chest: Diminished breath sounds B/L, No wheezing, No crackles, No rales Heart: S1S2+ RRR No murmurs Abd: Soft, NT, BS +, No organomegaly Ext: No edema, pulses are palpable, No calf tenderness Neuro : No acute focal neuro deficits noticed Skin: No rash. - Assessment and Plan (1) Hyponatremia Current Visit: Yes Status: Acute Assessment and Plan: Unclear etiology acute on chronic hyponatremia Pt was given Tolvaptan, dc'ed per renal recs. Her current Na was 132 was on 1/2NS @ 100 ml/hr, dc'ed. cont close monitoring appreciate Nephrology recommendations DVT Prophylaxis: SCDs. - Time Spent with Patient Total time spent is greater than 50% in coordination of care (as documented) at patient's floor/unit and/or counseling patient: Greater than 35 minutes Plan of Care Discussed with: patient Internal Medicine: Result - Labs CBC & Chem 7: 10/07/18 00:07 10/08/18 01:38 Labs: BMP 10/07/18 10/07/18 10/07/18 10:41 14:40 18:48 Sodium 130 L 132 L 134 L Potassium Chloride Carbon Dioxide BUN Creatinine Glucose Calcium 10/07/18 10/08/18 22:38 01:38 Sodium 132 L 132 L Potassium 4.9 Chloride 102 Carbon Dioxide 25 BUN 20 Creatinine 0.94 Glucose 102 Calcium 9.5 Consult Discharge Plan - Plan Referrals: NONE,PCP [Primary Care Provider] -
[2018-10-09 04:23] LABS: BUN/Creatinine Ratio 22 (6-26); Blood Urea Nitrogen 22 mg/dL (8-23); Calcium 9.6 mg/dL (8.6-10.3); Carbon Dioxide 23 mEq/L (23-29); Chloride 103 mEq/L (98-107); Glucose 99 mg/dL (70-105); Osmolality,Calculated 279 (280-300); Potassium 4.8 mEq/L (3.5-5.1); Sodium 133 mEq/L (136-145); eGFR For African Americans > 60 (> 60); eGFR For Non-African Americans 54 (> 60)
--- NOTE | 2018-10-09 09:18 | Internal Med Progress Note ---
Hospitalist Progress Note - Encounter Date of Encounter: 10/09/18 Time of Encounter: 09:17 - Subjective Interval History: Ms. Serrano is a 62 year old female patient with a history of recently diagnosed hyponatremia who was in the hospital here Last week for an episode of dizziness at work, now she was sent to the ER from PCP office for hyponatremia. Her labs showed a sodium level of 122. At the time of her discharge last week, her sodium level was 128. Pt stated she does drink about 4-6, 16Oz glasses of water every day especially when it is hot outside. Pt was admitted in the hospital and placed her on quality assurance monitor. Na improving slowly. She denied any new symptoms. - Exam Vitals: Temp Pulse Resp BP Pulse Ox 97.7 F 61 19 92/56 98 10/09/18 07:04 10/09/18 07:04 10/09/18 07:04 10/09/18 07:04 10/09/18 07:04 Exam: Gen: Alert, awake, Oriented to time,place and person Chest: Diminished breath sounds B/L, No wheezing, No crackles, No rales Heart: S1S2+ RRR No murmurs Abd: Soft, NT, BS +, No organomegaly Ext: No edema, pulses are palpable, No calf tenderness Neuro : No acute focal neuro deficits noticed Skin: No rash. - Assessment and Plan (1) Hyponatremia Current Visit: Yes Status: Acute Assessment and Plan: Unclear etiology acute on chronic hyponatremia Pt was given Tolvaptan, dc'ed per renal recs. Her current Na was 133 was on 1/2NS @ 100 ml/hr, dc'ed. cont close monitoring appreciate Nephrology recommendations DVT Prophylaxis: SCDs. - Time Spent with Patient Total time spent is greater than 50% in coordination of care (as documented) at patient's floor/unit and/or counseling patient: Greater than 35 minutes Plan of Care Discussed with: patient Internal Medicine: Result - Labs CBC & Chem 7: 10/07/18 00:07 10/09/18 03:44 Labs: BMP 10/09/18 03:44 Sodium 133 L Potassium 4.8 Chloride 103 Carbon Dioxide 23 BUN 22 Creatinine 1.02 Glucose 99 Calcium 9.6 Consult Discharge Plan - Plan Referrals: NONE,PCP [Primary Care Provider] -
--- NOTE | 2018-10-09 10:50 | Nephrology Progress Note ---
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 (CTA chest 09/28/18 showed emphysema) Subjective Interval history: Pt seen and examined with no new complaints Objective - Vital Signs Vital signs: Vital Signs Temp Pulse Resp BP Pulse Ox 10/09/18 07:04 97.7 F 61 19 92/56 98 10/09/18 02:21 98.3 F 82 14 113/71 98 10/08/18 22:41 98.7 F 62 14 119/70 96 10/08/18 18:52 98 F 77 14 109/70 96 10/08/18 15:46 98.8 F 66 20 115/66 95 10/08/18 11:14 97.7 F 82 20 105/71 96 Intake and Output 10/08/18 10/09/18 10/09/18 23:59 07:59 15:59 Output Total 350 / 1250 450 / 450 Balance -350 / 1100 -450 / -450 Output: Urine 350 / 1250 450 / 450 Other: # Voids 1 Weight 75.5 kg Patient Weight 10/09/18 23:59 Weight 75.5 kg - General Appearance General appearance: Present: well-developed, well-nourished EENT: Present: ATNC, mucous membranes moist Neck: Present: no JVD, supple Respiratory: Present: clear Cardiology: Present: no edema, normal S1, normal S2 Gastrointestinal: Present: no tenderness, no guarding Integumentary: Present: warm and dry Neurologic: Present: no focal deficit Musculoskeletal: Present: no deformities Psychiatric: Present: mood/affect appropriate - Lab 10/07/18 00:07 10/09/18 03:44 Most recent lab results 10/09/18 03:44 Calcium 9.6 Consult Discharge Plan - Plan Referrals: NONE,PCP [Primary Care Provider] -
[2018-10-09 15:58] VITALS: BP 106/53
--- NOTE | 2018-10-09 17:17 | Discharge Summary ---
- NOTES TO OUTPATIENT PROVIDER Notes to Outpatient Provider: f/u with PCP within a week. f/u with nephrology within 2 weeks. Date of Encounter: 10/09/18 Time of Encounter: 17:15 - Discharge Diagnosis (1) Hyponatremia Priority: Primary Status: Acute Hospital course: Ms. Serrano is a 62 year old female patient with a history of recently diagnosed hyponatremia who was in the hospital here Last week for an episode of dizziness at work was sent to the ER for hyponatremia. Her labs showed a sodium level of 122. At the time of her discharge last week, her sodium level was 128. Patient denies any diarrhea. No nausea or vomiting. She does drink about 4-6, 16Oz glasses of water every day especially when it is hot outside. She denies any dizziness or lightheadedness today. No changes to urine output. No recent changes to medications. Patient does not take any diuretics. She denies any chronic medical conditions. During her last hospitalization, she just received IV fluids with no significant changes to her sodium levels. Markell was consulted, patient was placed on with restriction. Her sodium level gradually improved, 133 on the discharge today. Patient is discharged home today, follow-up with PCP and nephrology as scheduled. Discharge discussed with: patient Time spent discussing smoking cessation with patient: more than 10 minutes - Time Spent with Patient Total time spent providing and/or coordinating discharge services: Time spent: Greater than 30 minutes - Discharge Medications Prescriptions: No Action No Known Home Drugs 1 each .ROUTE AD each Home Medications: No Known Home Drugs 09/28/18 [History] Allergies/Adverse Reactions: Allergy/AdvReac Type Severity Reaction Status Date / Time diazepam [From Valium] AdvReac See Verified 09/28/18 14:17 Comments Date of admission: 10/06/18 15:58 Primary care physician: PCP NONE Consults: 10/06/18 15:42 Consult to Nephrology [CONS] Stat Consulting Provider: [facility] Nadege/JEREMY/ELENA/LONNIE Reason for Consult: hyponatremia Call Completed: Yes Anticipated date of discharge: 10/09/18 - Constitutional Vitals: Temp Pulse Resp BP Pulse Ox 98.4 F 70 15 106/53 97 10/09/18 15:56 10/09/18 15:56 10/09/18 15:56 10/09/18 15:56 10/09/18 15:56 General appearance: Present: cooperative, A&O X 3, pleasant, answers questions appropriately Exam: Gen: Alert, awake, Oriented to time,place and person Chest: Diminished breath sounds B/L, No wheezing, No crackles, No rales Heart: S1S2+ RRR No murmurs Abd: Soft, NT, BS +, No organomegaly Ext: No edema, pulses are palpable, No calf tenderness Neuro : No acute focal neuro deficits noticed Skin: No rash. - Patient Status Disposition: Home, Self-Care Condition: Fair Functional capacity at discharge: independent ambulation Overall status at discharge: patient is progressing back to baseline - Discharge Instructions Follow Up With: Jodi Webster MD [Non-Partnered Physician] - (Please call Wednesday to schedule hospital follow up appointment for 7-10 days from date of discharge. ) - Diet and Activity Activity: increase activity as tolerated Diet: advance to your usual diet
== END 2018-10-09 17:45 | disposition home or self-care (01) ==
LOC: 3BNU 12:57 → EMEROOARM 12:57 → SUATTDRO 15:58 → 3BNU 16:55
PROVIDERS: ADMIT Internal Medicine Nephrology; ATTEND Family Medicine